=== PATIENT | male | born 1980 | race Caucasian/White ===

== ENCOUNTER 2023-06-08 22:51 | Inpatient (IN) ==
[2023-06-09 00:15] LABS: ABS Basophils 0.1 10^3/uL (0.0-0.1); ABS Eosinophils 0.5 10^3/uL (0.0-0.5); ABS Lymphocytes 2.4 10^3/uL (1.0-4.8); ABS Monocytes 0.7 10^3/uL (0.0-1.1); ABS Nucleated RBC 0.01 10^3/ul; Eosinophil % 6.4 %; Hematocrit 41.5 % (38-53); Hemoglobin 14.4 g/dL (13.2-16.3); Lymphocyte % 31.4 %; Mean Corpuscular Hemoglobin 30.7 pg (27-33); Mean Corpuscular Hgb Conc 34.8 g/dL (31-36); Mean Corpuscular Volume 88.2 fL (80-97); Mean Platelet Volume 7.5 fL (7.5-11.2); Nucleated Red Blood Cells % 0.2 /100 WBC (0.0-0.4); Platelet Count 264 10^3/uL (150-450); Red Cell Distribution Width 13.5 % (12-17); White Blood Count 7.6 10^3/uL (3.6-10.2)
[2023-06-09 00:22] LABS: Albumin 4.3 g/dL (3.2-5.2); CO2 Carbon Dioxide 25 mmol/L (22-32); Calcium 9.4 mg/dL (8.6-10.3); Chloride 105 mmol/L (101-111); Sodium 138 mmol/L (135-145)
[2023-06-09 00:28] LABS: ALT 40 U/L (7-52); Albumin/Globulin Ratio 1.5 (1-3); Alkaline Phosphatase 59 U/L (35-149); Blood Urea Nitrogen 7 mg/dL (6-24); Creatinine, Serum 0.61 mg/dL (0.67-1.17); Globulin 2.8 g/dL (2-4); Glucose 99 mg/dL (70-100); Total Protein 7.1 g/dL (6.4-8.9)
[2023-06-09 00:29] LABS: Anion Gap 8 mmol/L (2-16); Potassium 3.8 mmol/L (3.5-5.0)
[2023-06-09 00:30] LABS: AST 44 U/L (13-39); Urine Benzodiazepine Screen None Detected (None Detect); Urine Cannabinoids Screen None Detected (None Detect); Urine Opiates Screen None Detected (None Detect)
[2023-06-09 00:42] LABS: Urine Appearance Clear; Urine Bilirubin Negative (Negative); Urine Blood Negative (Negative); Urine Color Yellow; Urine Glucose Negative (Negative); Urine Ketones Negative (Negative); Urine Nitrite Negative (Negative); Urine Protein Negative (Negative); Urine Specific Gravity 1.009 (1.002-1.030); Urine Urobilinogen Negative (Negative)
[2023-06-09 01:00] LABS: Acetaminophen < 15 mcg/mL; Alcohol, S < 13 mg/dL (<13); Salicylate < 2.50 mg/dL (<30)
[2023-06-09 01:15] LABS: TSH Ultra Thyroid Stim Horm 4.72 mcIU/mL (0.34-5.60)
[2023-06-09] MEDS ORDERED: Al Hydrox/Mg Hydrox/Simet LIQ 30 ML UDC PO PRN (04:16)
[2023-06-09] MEDS ORDERED: LORazepam PO 0-6 for WAM protocol PO SCH (06:00)
[2023-06-09] MEDS: Vitamin THERAPEUTIC TAB PO SCH (10:03)
[2023-06-10 08:58] LABS: HDL Cholesterol 55.1 mg/dL
[2023-06-10] MEDS: Vitamin THERAPEUTIC TAB PO SCH (12:57)
== END 2023-06-10 16:06 | disposition home or self-care (01) | DRG 751 ==
LOC: ED 22:51 → EDHOLD 06-09 02:15 → BSU 06-09 05:30
PROVIDERS: ADMIT Psychiatry & Neurology Psychiatry; ATTEND Psychiatry & Neurology Psychiatry